=== PATIENT | female | born 1990 | race African-American/Black ===

== ENCOUNTER 2016-10-20 13:30 | Emergency (ER) | payer MEDICAID ==
[~2016-10-20] VITALS: Ht 157.5 cm; Wt 68.0 kg
[~2016-10-20 13:30] MED LIST: METO-293 PO; PNV1TABL76 PO
[2016-10-20] MEDS ORDERED: ONDANSETRON HCL 4MG/2ML VIAL IV ONE (18:30)
[2016-10-20 18:59] LABS: BASOPHILS % 0.4 % (0.0-2.0); EOSINOPHILS % 1.7 % (0.0-5.0); HEMATOCRIT. 35.5 % (36.0-48.0); HEMOGLOBIN. 12.1 g/dL (12.0-16.0); LYMPHOCYTES % 35.9 % (20.0-50.0); MEAN CORPUSCULAR HEMOGLOBIN 30.8 pg (28.0-32.0); MEAN CORPUSCULAR HGB CONC 34.2 g/dL (31.0-37.0); MEAN CORPUSCULAR VOLUME 90.2 fL (81.0-99.0); MONOCYTES % 5.6 % (2.0-8.0); NEUTROPHILS % 56.4 % (40.0-76.0); PLATELET 269 x1000/uL (130-400); RED BLOOD CELL COUNT 3.94 mill/uL (4.2-5.4); RED CELL DISTRIBUTION WIDTH 13.5 % (11.6-14.6); WHITE BLOOD COUNT 9.9 x1000/uL (4.5-11.0)
[2016-10-20 19:20] LABS: ANION GAP 14; CALCIUM 8.5 mg/dL (8.5-10.1); CARBON DIOXIDE 26 mEq/L (21-32); CHLORIDE 103 mEq/L (98-107); INDEX HEMOLYSI 1 (1-3); INDEX ICTERIC 1 (1-4); INDEX LIPEMIC 1 (1-3); UREA NITROGEN BLOOD 5 mg/dL (7-21); eGFR > 60 mL/min (>60)
[2016-10-20 19:27] LABS: B-HCG QUANTITATIVE 81423 mIU/mL (<3)
[2016-10-20 20:08] VITALS: BP 110/63
== END 2016-10-20 20:22 | disposition home or self-care (01) ==
LOC: ER 16:03
DX: O20.0 Threatened abortion (principal); Z3A.09 9 weeks gestation of pregnancy; O26.891 Other specified pregnancy related conditions, first trimester; R03.0 Elevated blood-pressure reading, without diagnosis of hypertension
CPT/HCPCS: 36415; 76801; 76817; 80048; 81025; 84702; 85025; 86850; 86900; 86901; 96374; 99285; Z7610; J2405

== ENCOUNTER 2016-11-05 19:34 | Emergency (ER) | payer MEDICAID ==
[~2016-11-05] VITALS: Ht 157.5 cm; Wt 69.0 kg
[2016-11-05] MEDS ORDERED: SODIUM CHLORIDE 0.9% 1,000 ML IV ONE (20:47)
[2016-11-05 21:19] LABS: BASOPHILS % 0.1 % (0.0-2.0); HEMATOCRIT. 35.3 % (36.0-48.0); HEMOGLOBIN. 12.1 g/dL (12.0-16.0); LYMPHOCYTES % 11.7 % (20.0-50.0); MEAN CORPUSCULAR HEMOGLOBIN 30.7 pg (28.0-32.0); MEAN CORPUSCULAR HGB CONC 34.3 g/dL (31.0-37.0); MEAN CORPUSCULAR VOLUME 89.3 fL (81.0-99.0); MEAN PLATELET VOLUME 7.8 fl (7.4-10.4); MONOCYTES % 8.7 % (2.0-8.0); NEUTROPHILS % 79.5 % (40.0-76.0); PLATELET 252 x1000/uL (130-400); RED BLOOD CELL COUNT 3.95 mill/uL (4.2-5.4); RED CELL DISTRIBUTION WIDTH 13.2 % (11.6-14.6); WHITE BLOOD COUNT 7.3 x1000/uL (4.5-11.0)
[2016-11-05 21:41] LABS: ANION GAP 12; CALCIUM 8.5 mg/dL (8.5-10.1); CARBON DIOXIDE 26 mEq/L (21-32); CHLORIDE 102 mEq/L (98-107); INDEX HEMOLYSI 1 (1-3); INDEX ICTERIC 1 (1-4); INDEX LIPEMIC 1 (1-3); eGFR > 60 mL/min (>60)
[2016-11-05 21:42] LABS: UREA NITROGEN BLOOD 4 mg/dL (7-21)
[2016-11-05 21:44] LABS: CLARITY URINE CLEAR (CLEAR); COLOR URINE YELLOW (YELLOW); GLUCOSE URINE NEGATIVE (NEGATIVE); KETONES URINE 2+ (NEGATIVE); LEUKOCYTE ESTERASE URINE NEGATIVE (NEGATIVE); NITRITE URINE NEGATIVE (NEGATIVE); OCCULT BLOOD URINE NEGATIVE (NEGATIVE); PROTEIN URINE NEGATIVE (NEGATIVE); SPECIFIC GRAVITY URINE 1.007 (1.005-1.030); UROBILINOGEN URINE 0.2 E.U./dL (0.2-1.0)
[2016-11-05 21:48] LABS: B-HCG QUANTITATIVE 26299 mIU/mL (<3)
[2016-11-05] MEDS ORDERED: METOCLOPRAMIDE HCL 10MG/2ML VIAL IV ONE (23:00)
[2016-11-05 23:08] VITALS: BP 115/71
== END 2016-11-06 00:13 | disposition home or self-care (01) ==
LOC: ER 21:56
DX: K52.9 Noninfective gastroenteritis and colitis, unspecified (principal); F12.10 Cannabis abuse, uncomplicated; Z88.0 Allergy status to penicillin; Z91.018 Allergy to other foods; Z98.890 Other specified postprocedural states
CPT/HCPCS: 36415; 76801; 76817; 80048; 81003; 81025; 84702; 85025; 86850; 86870; 86900; 86901; 96361; 96374; 99285; J2765; J7030; Z7610

== ENCOUNTER 2016-12-23 13:26 | Emergency (ER) | payer MEDICAID ==
[~2016-12-23] VITALS: Ht 157.5 cm; Wt 72.0 kg
[2016-12-23 15:20] VITALS: BP 108/64
[2016-12-23] MEDS ORDERED: ACETAMINOPHEN 500MG TABLET PO ONE (16:30)
== END 2016-12-23 17:00 | disposition home or self-care (01) ==
LOC: ER 13:28
DX: O26.892 Other specified pregnancy related conditions, second trimester (principal); R10.2 Pelvic and perineal pain; Z3A.18 18 weeks gestation of pregnancy; M79.604 Pain in right leg; Y93.E8 Activity, other personal hygiene; W20.8XXA Other cause of strike by thrown, projected or falling object, initial encounter; Y99.0 Civilian activity done for income or pay; Y92.69 Other specified industrial and construction area as the place of occurrence of the external cause; Z88.1 Allergy status to other antibiotic agents; Z91.018 Allergy to other foods
CPT/HCPCS: 76805; 99284

== ENCOUNTER 2017-01-01 18:03 | Observation (INO) | payer MEDICAID ==
[~2017-01-01] VITALS: Ht 157.5 cm; Wt 71.7 kg
[2017-01-01] MEDS ORDERED: ferr (19:13)
[2017-01-01] MEDS ORDERED: iron (19:16)
[2017-01-01 19:50] LABS: CLARITY URINE CLEAR (CLEAR); COLOR URINE YELLOW (YELLOW); GLUCOSE URINE NEGATIVE (NEGATIVE); KETONES URINE NEGATIVE (NEGATIVE); LEUKOCYTE ESTERASE URINE TRACE (NEGATIVE); NITRITE URINE NEGATIVE (NEGATIVE); OCCULT BLOOD URINE NEGATIVE (NEGATIVE); PROTEIN URINE NEGATIVE (NEGATIVE); SPECIFIC GRAVITY URINE 1.012 (1.005-1.030); UROBILINOGEN URINE 0.2 E.U./dL (0.2-1.0)
== END 2017-01-01 20:10 | disposition home or self-care (01) ==
LOC: EDSTATUS 18:17 → L&D 18:23
PROVIDERS: ADMIT Obstetrics & Gynecology; ATTEND Obstetrics & Gynecology
DX: O92.29 Other disorders of breast associated with pregnancy and the puerperium (principal); N63 Unspecified lump in breast; O26.892 Other specified pregnancy related conditions, second trimester; R10.9 Unspecified abdominal pain; Z3A.20 20 weeks gestation of pregnancy
CPT/HCPCS: 81001; 99281; G0378

== ENCOUNTER 2017-01-01 20:17 | Emergency (ER) | payer MEDICAID ==
[~2017-01-01 20:17] MED LIST changes: -METO-293 PO; +iron
== END 2017-01-02 09:07 | disposition left against medical advice (07) ==
LOC: ER 01-02 08:39
DX: Z53.21 Procedure and treatment not carried out due to patient leaving prior to being seen by health care provider (principal)

== ENCOUNTER 2017-01-02 09:12 | Emergency (ER) | payer MEDICAID ==
[~2017-01-02] VITALS: Ht 157.5 cm; Wt 72.0 kg
[2017-01-02] MEDS ORDERED: DEXT 5%/LACTATED RINGERS 1,000 ML IV SCH (10:15)
[2017-01-02] MEDS ORDERED: ACETAMINOPHEN 500MG TABLET PO SCH (10:15)
[2017-01-02 11:09] VITALS: BP 109/62
[2017-01-02 12:54] VITALS: BP 117/77
[2017-01-02] MEDS ORDERED: ACETAMINOPHEN 325MG TABLET PO STA (14:15)
[2017-01-02] MEDS ORDERED: SODIUM CHLORIDE 0.9% 1,000 ML IV ONE (14:15)
[2017-01-02] MEDS ORDERED: ONDANSETRON HCL 4MG/2ML VIAL IV ONE (14:15)
[2017-01-02 14:59] LABS: BASOPHILS % 0.2 % (0.0-2.0); EOSINOPHILS % 0.4 % (0.0-5.0); HEMATOCRIT. 36.3 % (36.0-48.0); HEMOGLOBIN. 12.6 g/dL (12.0-16.0); LYMPHOCYTES % 16.8 % (20.0-50.0); MEAN CORPUSCULAR VOLUME 89.6 fL (81.0-99.0); MEAN PLATELET VOLUME 8.3 fl (7.4-10.4); MONOCYTES % 4.7 % (2.0-8.0); NEUTROPHILS % 77.9 % (40.0-76.0); PLATELET 247 x1000/uL (130-400); RED BLOOD CELL COUNT 4.05 mill/uL (4.2-5.4); RED CELL DISTRIBUTION WIDTH 13.3 % (11.6-14.6)
[2017-01-02 15:08] LABS: CARBON DIOXIDE 26 mEq/L (21-32); CHLORIDE 106 mEq/L (98-107)
[2017-01-02 15:26] LABS: B-HCG QUANTITATIVE 4681 mIU/mL (<3)
== END 2017-01-02 16:17 | disposition left against medical advice (07) ==
LOC: ER 09:40 → L&D 09:41 → UNDOADMOB 09:41 → OBSVTOIN 09:41 → INTOOBSV 09:41 → UNDODISOB 12:15 → ER 13:58
DX: O26.892 Other specified pregnancy related conditions, second trimester (principal); O21.9 Vomiting of pregnancy, unspecified; Z3A.20 20 weeks gestation of pregnancy; Z88.0 Allergy status to penicillin
CPT/HCPCS: 36415; 76815; 80048; 84702; 85025; 86850; 86870; 86900; 86901; 96360; 96361; 99285; J7030; X7700; Z7610; 99281; J7121

== ENCOUNTER 2018-03-08 18:17 | Emergency (ER) | payer MEDICAID ==
[~2018-03-08] VITALS: Ht 165.1 cm; Wt 7.0 kg
[2018-03-08] MEDS ORDERED: IBUPROFEN 600MG TABLET PO ONE (18:45)
[2018-03-08 18:52] LABS: BASOPHILS % 0.7 % (0.0-2.0); HEMATOCRIT. 39.1 % (36.0-48.0); HEMOGLOBIN. 13.1 g/dL (12.0-16.0); LYMPHOCYTES % 40.9 % (20.0-50.0); MEAN CORPUSCULAR HEMOGLOBIN 29.7 pg (28.0-32.0); MEAN CORPUSCULAR VOLUME 88.4 fL (81.0-99.0); MEAN PLATELET VOLUME 8.4 fl (7.4-10.4); MONOCYTES % 6.7 % (2.0-8.0); NEUTROPHILS % 49.7 % (40.0-76.0); PLATELET 340 x1000/uL (130-400); RED BLOOD CELL COUNT 4.43 mill/uL (4.2-5.4); RED CELL DISTRIBUTION WIDTH 13.6 % (11.6-14.6)
[2018-03-08 18:55] LABS: CHLORIDE 107 mEq/L (98-107)
[2018-03-08 19:06] LABS: HCG SCREEN NEGATIVE
[2018-03-09] MEDS ORDERED: ACETAMINOPHEN 325MG TABLET PO ONE (00:45)
[2018-03-09 01:53] VITALS: BP 106/63
== END 2018-03-09 02:00 | disposition home or self-care (01) ==
LOC: ER 18:41
DX: S96.811A Strain of other specified muscles and tendons at ankle and foot level, right foot, initial encounter (principal); R51 Headache; V49.49XA Driver injured in collision with other motor vehicles in traffic accident, initial encounter; Y93.89 Activity, other specified; Y92.89 Other specified places as the place of occurrence of the external cause; Y99.8 Other external cause status; Z88.0 Allergy status to penicillin; Z91.018 Allergy to other foods
CPT/HCPCS: 36415; 80053; 84703; 85025; 93005; 99285